=== PATIENT | male | born 1930 | race Caucasian/White ===

== ENCOUNTER 2017-03-17 11:46 | Inpatient (IN) | payer OTHER, MEDICARE ==
--- NOTE | 2017-03-17 11:58 | CPEKG ---
Heart Rate: 108 RR Interval: 556 P-R Interval: 180 QRSD Interval: 100 QT Interval: 340 QTC Interval: 456 P [place]: 44 QRS [place]: -17 T Wave [place]: 122 EKG Severity - ABNORMAL ECG - EKG Impression: SINUS TACHYCARDIA EKG Impression: MULTIPLE VENTRICULAR PREMATURE COMPLEXES EKG Impression: BORDERLINE LEFT AXIS DEVIATION EKG Impression: NONSPECIFIC REPOL ABNORMALITY, DIFFUSE LEADS Electronically Signed By: Vishal Jeong 17-Mar-2017 13:25:22
[2017-03-17] MEDS ORDERED: IPRATROPIUM/ALBUTEROL 3 ML DEYVIAL IH ONE (12:02)
--- NOTE | 2017-03-17 12:10 | EDPHY ---
H & P Time Seen by Provider: 03/17/17 11:49 HPI/ROS: CHIEF COMPLAINT: Cough and shortness of breath HISTORY OF PRESENT ILLNESS: The patient returned from [place] on Thursday. He lives there during the winter. Thursday night he began getting a cough and feeling more short of breath. Presents today with moderate shortness of breath. Worse with exertion. Worse with coughing. Not associated with chest pain. No hemoptysis and chronic leg swelling which is not worse. REVIEW OF SYSTEMS: Eye: no change in vision ENT: no sore throat Cardiac: no chest pain or syncope Pulmonary: HPI Abdomen: no vomiting, diarrhea, abdominal pain Musculoskeletal: no back pain, he does have chronic lower extremity swelling. Skin: no rash Neuro: no headache Constitutional: no fever : no urinary symptoms A comprehensive 10 point review of systems is otherwise negative aside from elements mentioned in the history of present illness. 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 Eyes: No scleral icterus. ENT, Mouth: Normal mucous membranes. Respiratory: Bilateral wheezing and prolonged expiratory phase. Cardiovascular: Regular rate and rhythm. Gastrointestinal: Abdomen is soft and non tender. Neurological: Alert and oriented x3. Normally conversant. Face symmetric, normal movement and sensation in all extremities. Skin: Warm and dry, no rashes. Musculoskeletal: Bilateral 3+ pedal edema but no calf tenderness. Psychiatric: Not agitated. Emergency Department course/MDM: DuoNeb, chest x-ray and EKG, troponin and D-dimer. Noted to be hypoxemic at 89 % and slightly tachycardic greater than 100. 1245: D-dimer elevated, CT angio discussed and consented. 1410: Results and plan discussed with patient and family. Admission for nebulizer treatments, IV steroids, supportive care and oxygen. Hypoxic on arrival, require supplemental oxygen. Does not currently have indication for antibiotics. Bacterial infection not suspected. Likely URI with reactive airway disease. Smoking Status: Never smoked Constitutional: Initial Vital Signs Temperature (C) 37.1 C 03/17/17 11:46 Heart Rate 109 H 03/17/17 11:46 Respiratory Rate 24 H 03/17/17 11:46 Blood Pressure 187/92 H 03/17/17 11:46 O2 Sat (%) 88 L 03/17/17 11:46 O2 Delivery Mode Nasal Cannula O2 (L/minute) 2 Allergies/Adverse Reactions: Sulfa (Sulfonamide Antibiotics) Allergy (Unknown, Verified 09/11/16 18:46) Home Medications: Medication Instructions Recorded Omeprazole 20 mg PO BID 09/12/16 Valsartan/Hydrochlorothiazide 1 each PO DAILY 03/17/17 [Diovan Hct 320-25 mg Tablet] Medical Decision Making - Diagnostics EKG Interpretation: 12-lead EKG interpreted by me; official reading is in trace master. My interpretation is sinus tachycardia, PVC, left axis. Imaging Results: Imaging Impressions Chest X-Ray 03/17/17 12:02 Impression: 1. Findings consistent with COPD/chronic bronchitis. 2. Basilar opacities presumably represent atelectasis. Chest/Thorax CTA 03/17/17 12:42 Impression: 1. Technically limited study with no large central pulmonary emboli identified. 2. Scattered areas of groundglass opacity bilaterally and noncalcified pulmonary nodules not significantly changed from the 2016 study. 3. Basilar atelectasis, left greater than right. 4. Large hiatal hernia with associated esophageal reflux. 5. Numerous enlarged lymph nodes of uncertain clinical significance. Results called and discussed with BLAISE CORTES M.D. on 03/17/2017 at 14:20 CT angio discussed with at 1408 no PE, chronic lung disease. Consult/Admit Bed Type: [facility] 1409 - Data Points Laboratory Results: Laboratory Results 03/17/17 12:04 03/17/17 12:04 03/17/17 03/17/17 03/17/17 12:04 12:04 12:04 WBC 3.14 10^3/uL L 10^3/uL (3.80-9.50) RBC 3.78 10^6/uL L 10^6/uL (4.40-6.38) Hgb 9.7 g/dL L g/dL (13.7-17.5) Hct 30.9 % L % (40.0-51.0) MCV 81.7 fL fL (81.5-99.8) MCH 25.7 pg L pg (27.9-34.1) MCHC 31.4 g/dL L g/dL (32.4-36.7) RDW 15.9 % H % (11.5-15.2) Plt Count 146 10^3/uL L 10^3/uL (150-400) MPV 9.2 fL fL (8.7-11.7) Neut % (Auto) 79.0 % H % (39.3-74.2) Lymph % (Auto) 15.6 % % (15.0-45.0) Ceiba % (Auto) 4.8 % % (4.5-13.0) Eos % (Auto) 0.0 % L % (0.6-7.6) Baso % (Auto) 0.3 % % (0.3-1.7) Nucleat RBC Rel Count 0.6 % H % (0.0-0.2) Absolute Neuts (auto) 2.48 10^3/uL 10^3/uL (1.70-6.50) Absolute Lymphs (auto) 0.49 10^3/uL L 10^3/uL (1.00-3.00) Absolute Monos (auto) 0.15 10^3/uL L 10^3/uL (0.30-0.80) Absolute Eos (auto) 0.00 10^3/uL L 10^3/uL (0.03-0.40) Absolute Basos (auto) 0.01 10^3/uL L 10^3/uL (0.02-0.10) Absolute Nucleated RBC 0.02 10^3/uL H 10^3/uL (0-0.01) Immature Gran % 0.3 % % (0.0-1.1) Seg Neutrophils % 71 % % Band Neutrophils % 9 % % Lymphocytes % 14 % % Monocytes % 5 % % Eosinophils % 1 % % Immature Gran # 0.01 10^3/uL 10^3/uL (0.00-0.10) Absolute Seg Neuts 2.23 10^/uL 10^/uL (1.70-6.50) Absolute Band Neuts 0.28 10^3/uL 10^3/uL (0.00-0.70) Absolute Lymphocytes 0.44 10^3/uL L 10^3/uL (1.00-3.00) Absolute Monocytes 0.16 10^3/uL L 10^3/uL (0.30-0.80) Absolute Eosinophils 0.03 10^3/uL 10^3/uL (0.03-0.40) Atypical Lymphocytes 1+ H Platelet Estimate DECREASED L (ADEQ) Hypochromasia 2+ H PT 13.3 SEC SEC (12.0-15.0) INR 1.02 (0.83-1.16) APTT 29.8 SEC SEC (23.0-38.0) D-Dimer 1.70 ug/mLFEU H ug/mLFEU (0.00-0.50) Sodium 137 mEq/L mEq/L (134-144) Potassium 4.0 mEq/L mEq/L (3.5-5.2) Chloride 104 mEq/L mEq/L (97-110) Carbon Dioxide 23 mEq/l mEq/l (22-31) Anion Gap 10 mEq/L mEq/L (8-16) BUN 15 mg/dL mg/dL (7-23) Creatinine 1.0 mg/dL mg/dL (0.7-1.3) Estimated GFR > 60 Glucose 123 mg/dL H mg/dL (70-100) Calcium 8.5 mg/dL mg/dL (8.5-10.4) Total Bilirubin 0.7 mg/dL mg/dL (0.1-1.4) Troponin I 0.026 ng/mL ng/mL (0-0.034) Medications Given: Discontinued Medications Albuterol (Proventil Neb) 3 ml IH EDNOW ONE Stop: 03/17/17 14:13 Last Admin: 03/17/17 14:20 Dose: 3 ml Albuterol/Ipratropium (Duoneb) 3 ml IH EDNOW ONE Stop: 03/17/17 12:03 Last Admin: 03/17/17 12:23 Dose: 3 ml Methylprednisolone Sodium Succinate (Solu-Medrol) 125 mg IVP EDNOW ONE Stop: 03/17/17 14:13 Last Admin: 03/17/17 14:20 Dose: 125 mg Departure - Departure Disposition: [facility] Inpatient Acute Clinical Impression: Bronchospasm, Hypoxia Condition: Good
[2017-03-17 12:22] LABS: % IMMATURE GRANULYOCYTES 0.3 % (0.0-1.1); ABSOLUTE IMMATURE GRANULOCYTES 0.01 10^3/uL (0.00-0.10); ABSOLUTE NRBC COUNT 0.02 10^3/uL (0-0.01); ADD DIFF? NO; ADD MORPH? NO; ADD SCAN? YES; FRAGMENT RBC FLAG 0 (0-99); HEMATOCRIT 30.9 % (40.0-51.0); HEMOGLOBIN 9.7 g/dL (13.7-17.5); LEFT SHIFT FLG 40 (0-99); LIPEMIA HEMOLYSIS FLAG 80 (0-99); MEAN CELL HEMOGLOBIN 25.7 pg (27.9-34.1); MEAN CELL HEMOGLOBIN CONCENTR. 31.4 g/dL (32.4-36.7); MEAN CELL VOLUME 81.7 fL (81.5-99.8); MEAN PLATELET VOLUME 9.2 fL (8.7-11.7); NRBC-AUTO% 0.6 % (0.0-0.2); PLATELET CLUMPS FLAG 20 (0-99); PLATELET COUNT 146 10^3/uL (150-400); RED BLOOD CELL COUNT 3.78 10^6/uL (4.40-6.38); RED CELL DISTRIBUTION WIDTH 15.9 % (11.5-15.2)
[2017-03-17 12:23] LABS: ATYPICAL LYMPHOCYTE FLAG 110 (0-99)
[2017-03-17 12:36] LABS: ANION GAP 10 mEq/L (8-16); APTT 29.8 SEC (23.0-38.0); BILIRUBIN,TOTAL 0.7 mg/dL (0.1-1.4); CALCIUM 8.5 mg/dL (8.5-10.4); CARBON DIOXIDE 23 mEq/l (22-31); CHLORIDE 104 mEq/L (97-110); GLOMERULAR FILTRATION RATE > 60; GLUCOSE 123 mg/dL (70-100); INR 1.02 (0.83-1.16); PROTIME(PATIENT) 13.3 SEC (12.0-15.0); SODIUM 137 mEq/L (134-144)
[2017-03-17] MEDS ORDERED: IOPAMIDOL (ISOVUE 370) 100 ML BTL IV ONE (12:46)
[2017-03-17 12:49] LABS: TROPONIN I 0.026 ng/mL (0-0.034)
[2017-03-17 12:54] LABS: SCAN POSITIVE
[2017-03-17 12:58] LABS: HYPOCHROMIA 2+; PLATELET ESTIMATE DECREASED (ADEQ)
[2017-03-17] MEDS ORDERED: methylPREDNISolone SOD SUCC 125 MG/2 ML VIAL IVP ONE (14:12)
[2017-03-17] MEDS ORDERED: ALBUTEROL 3 ML DEYVIAL IH ONE (14:12)
[2017-03-17] MEDS ORDERED: ACETAMINOPHEN 325 MG TAB PO PRN (15:05)
[2017-03-17] MEDS ORDERED: ONDANSETRON 4 MG/2 ML VIAL IVP PRN (15:05)
[2017-03-17] MEDS ORDERED: ONDANSETRON DISINTEGRATING 4 MG TAB PO PRN (15:05)
[2017-03-17] MEDS ORDERED: ALBUTEROL 3 ML DEYVIAL IH PRN (15:15)
--- NOTE | 2017-03-17 15:46 | GHP ---
[f rep st] HISTORY AND PHYSICAL DATE OF ADMISSION: 03/17/2017 HISTORY OF PRESENT ILLNESS: The patient is a pleasant 87-year-old gentleman with history of berylli osis who presents to the hospital with increased work of breathing. It sounds like he has recently returned from [place] where he spent some time in the winter. He is currently complaining of increa sed work of breathing, cough that is moderately productive, maybe had some chills, no fever. He did get a flu shot this year. His cough has been productive of occasional white sputum. He has no his tory of pulmonary embolism or coronary artery disease and not had anginal-type pain. He does have l ower extremity edema that is not new. He denies hematemesis or coffee-ground emesis. REVIEW OF SYSTEMS: Complete 10-point review of systems conducted, negative except as noted in the H PI. PAST MEDICAL HISTORY: 1. Berylliosis with chronic interstitial lung disease, not on home oxygen. 2. Esophagitis with a GI bleed in August 2016. 3. Pseudogout. 4. Hypertension. 5. GERD. MEDICATIONS: Diovan, Prilosec, vitamins. Although an updated medication list not available current ly. ALLERGIES: He is allergic to sulfa. SOCIAL HISTORY: No tobacco, minimal alcohol. Worked at [employer] for 30 years. present at bedside. FAMILY HISTORY: Daughter is alive and healthy, present at the bedside. Parents are . PHYSICAL EXAM: VITAL SIGNS: Temp 37.1, blood pressure 187/92, pulse 109, breathing 24 times a alida te, 88% on room air. GENERAL: In no acute distress. HEENT: Sclerae anicteric. Oropharynx clear. Mucous membranes moist. NECK: Supple without lymphadenopathy or JVD. LUNGS: Show rhonchi bilat erally with moderate air movement. There is no wheezing. HEART: S1, S2. Tachycardic. ABDOMEN: Soft, nontender, nondistended. LOWER EXTREMITIES: Show 3+ lower extremity edema bilaterally. SKIN : Without rash. NEUROLOGIC: Grossly nonfocal. He is hard of hearing. LABS: White count 3.14, hemoglobin 9.7, hematocrit 30.9. It was not 7.9 and 24.2 at discharge 6 mo nths ago. Platelets 146. D-dimer is 1.7. Coags normal. Sodium 137, potassium 4.0, chloride 104, bicarb 23, BUN 15, creatinine 1.0. Troponin is 0.026. CTA of the chest shows no pulmonary embolism . The lung parenchyma is limited evaluation secondary to motion artifact although there is evidence of chronic interstitial lung disease. Chest x-ray shows chronic interstitial lung disease without acute infiltrate. Notably the radiologist felt this scan was unchanged. EKG interpreted by me. It shows sinus tach at [address] waves are a little bit saggy in I and L, V5 and V6. There are a couple of PVCs. Compared with the prior EKG also interpreted by me, the downward slopin g ST segments are not new in I and L. I have discussed the case with Dr. Vishal Jeong. ASSESSMENT/PLAN: An 87-year-old gentleman with berylliosis presents with increased work of breathin g and hypoxia. 1. Hypoxemia likely secondary to hyperinflation given chronic obstructive disease as well as some u nderlying interstitial disease. Management as below. 2. Increased work of breathing. I suspect the patient has acute bronchitis and underlying lung dis ease. We will treat with steroids, nebulizers, and doxycycline. I do not suspect left-sided heart failure at this time. 3. Edema. I suspect the patient has a degree of right heart failure given his longstanding lung di sease. He is also not on oxygen at home. We will check echo to evaluate right-sided pressures. 4. Indeterminate troponin. We will cycle. He certainly is at risk for coronary disease given his age and hypertension. 5. History of esophagitis and gastrointestinal bleed. I will place him on a PPI given his steroid therapy. 6. Prophylaxis high risk. Pharmacologic prophylaxis is indicated. Start enoxaparin. 7. Disposition: Inpatient status. I anticipate greater than 48 hours required to turn this patien t around. /[id number]/MODL
--- NOTE | 2017-03-17 16:11 | ECHO ---
[id number] + + [address] : : [place] [address] : : [phone] + Adult Echocardiographic Report + ------+ :Name: KESHAWN SIMENTAL WStudy Date: 03/17/2017 03:25 PM BP: 144/89 mmH g : : Hospital Admission Number: [id number] Locati on: ER: :: 1930 Gender: Male Height: 67 in : :Age: 87 yrs Race: WH Weight: 157 lb : :Reason For Study: eval rt heart : : BSA: 1.8 meter s2 : :History: edema, lung disease : + ------+ MMode/2D Measurements \T\ Calculations IVSd: 1.4 cm RVDd: 3.6 cm FS: 38.1 % Ao root diam: LVPWd: 1.0 cm LVIDd: 3.8 cm EDV(Teich): 63.1 ml 4.0 cm LVIDs: 2.4 cm ESV(Teich): 19.5 ml LA dimension: EF(Teich): 69.1 % 3.7 cm LVOT diam: LVLd ap4: 9.8 cm SV(MOD-sp4): 2.0 cm EDV(MOD-sp4): 121.0 ml LVOT area: 214.0 ml 3.1 cm2 LVLs ap4: 8.2 cm ESV(MOD-sp4): 93.0 ml EF(MOD-sp4): 56.5 % Normal Measurement Values: + + :LVIDd (3.5-5.7cm) IVSd (0.6-1.1cm) LVPWd (0.6-1.1cm) Aortic Root (2.0-3.7cm)Left Atrium (1.5-4.0cm): :LV Vol(d) (76-115ml) LV Vol(s) (29-48ml) Ejec Fraction (50-65%)PV Severiano (0.6- 1.2m/s) TV Severiano (0.4-1.0m/s) : :MV E Severiano (0.8-1.0m/s)MV A Severiano (0.3-1.0m/s)LVOT Severiano (0.7-1.2m/s) Asc Ao Severiano ( 0.9-1.8m/s) : + + Doppler Measurements \T\ Calculations MV E max severiano: Ao V2 max: AI max severiano: LV V1 max: 108.0 cm/sec 269.5 cm/sec 419.0 cm/sec 159.0 cm/sec MV A max severiano: Ao max PG: AI max P.2 mmHgLV V1 max P.0 cm/sec 29.1 mmHg AI dec slope: 10.1 mmHg MV E/A: 0.78 Ao mean P.0 cm/sec2 LV V1 mean PG: MV dec time: 16.5 mmHg AI P1/2t: 253.0 msec5.0 mmHg 0.24 sec Ao V2 mean: LV V1 mean: 193.5 cm/sec 101.0 cm/sec Ao V2 VTI: 44.9 cm LV V1 VTI: 25.6 cm TIFFANY(I,D): 1.8 cm2 TIFFANY(V,D): 1.9 cm2 SV(LVOT): 80.4 ml PA V2 max: TR max severiano: 128.0 cm/sec 275.0 cm/sec PA max PG: TR max P.3 mmHg 6.6 mmHg RAP systole: 5.0 mmHg RVSP(TR): 35.3 mmHg Left Ventricle The left ventricle is normal in size and function. There is mild concentric left ventricular hypertrophy. Ejection Fraction = 60-65%. There is Doppler evidence for diastolic dysfunction. No regional wall motion abnormalities noted. Right Ventricle The right ventricle is normal in size and function. Atria The left atrium is moderate to severely dilated. The Left Atrial Volume is 52 ml/m2. Right atrial size is normal. Mitral Valve The mitral valve leaflets appear thickened, but open well. There is mild to moderate mitral annular calcification. There is no mitral valve stenosis. There is trace to mild mitral regurgitation. Tricuspid Valve The tricuspid valve is normal in structure and function. There is no tricuspid stenosis. There is trace tricuspid regurgitation. Right ventricular systolic pressure is 35mmHg. There is Doppler evidence for mild pulmonary hypertension. Aortic Valve The aortic valve is trileaflet. Mild Aortic Valve Calcification. Mild valvular aortic stenosis. 29/17 max/mean aortic valve pressure gradients. Moderate aortic regurgitation. Pulmonic Valve The pulmonic valve is not well visualized. trace to mild pulmonic valvular regurgitation. Great Vessels The aortic root is normal size. Pericardium/Pleural There is no pericardial effusion. Conclusion A two-dimensional transthoracic echocardiogram with M-mode and Doppler was performed. The left ventricle is normal in size and function. There is mild concentric left ventricular hypertrophy. Ejection Fraction = 60-65%. There is Doppler evidence for diastolic dysfunction. The left atrium is moderate to severely dilated. The Left Atrial Volume is 52 ml/m2. There is trace to mild mitral regurgitation. There is trace tricuspid regurgitation. Right ventricular systolic pressure is 35mmHg. There is Doppler evidence for mild pulmonary hypertension. Mild valvular aortic stenosis. 29/17 max/mean aortic valve pressure gradients. Moderate aortic regurgitation. trace to mild pulmonic valvular regurgitation. Final Reading Physician: Junior Clark signed on 03/17/2017 04:09 PM Ordering Physician: Burton Fields Performed By: Mariella Rashid
[2017-03-17] MEDS: PANTOPRAZOLE SODIUM 40 MG TAB PO SCH (16:27)
[2017-03-17] MEDS: IPRATROPIUM/ALBUTEROL 3 ML DEYVIAL IH SCH ×2 (16:58→23:07)
[2017-03-17] MEDS: methylPREDNISolone SOD SUCC 125 MG/2 ML VIAL IVP SCH (18:28)
[2017-03-17 20:03] LABS: TROPONIN I 0.077 ng/mL (0-0.034)
[2017-03-17] MEDS ORDERED: NON-FORMULARY NEW DRUG (Omeprazole [Omeprazole] 20 MG) PO SCH (21:00)
[2017-03-17] MEDS: DOXYCYCLINE HYCLATE 100 MG CAP/TAB PO SCH (21:58)
[2017-03-18] MEDS: methylPREDNISolone SOD SUCC 125 MG/2 ML VIAL IVP SCH ×2 (00:02→05:15)
[2017-03-18] MEDS: IPRATROPIUM/ALBUTEROL 3 ML DEYVIAL IH SCH ×4 (05:18→23:00)
[2017-03-18 06:15] LABS: ADD MORPH? NO; ADD SCAN? YES; ATYPICAL LYMPHOCYTE FLAG 0 (0-99); FRAGMENT RBC FLAG 0 (0-99); HEMATOCRIT 26.9 % (40.0-51.0); HEMOGLOBIN 8.5 g/dL (13.7-17.5); LIPEMIA HEMOLYSIS FLAG 80 (0-99); MEAN CELL HEMOGLOBIN 25.8 pg (27.9-34.1); MEAN CELL HEMOGLOBIN CONCENTR. 31.6 g/dL (32.4-36.7); MEAN CELL VOLUME 81.5 fL (81.5-99.8); MEAN PLATELET VOLUME 9.7 fL (8.7-11.7); PLATELET CLUMPS FLAG 0 (0-99); PLATELET COUNT 115 10^3/uL (150-400); RED CELL DISTRIBUTION WIDTH 15.9 % (11.5-15.2)
[2017-03-18 07:00] LABS: LEFT SHIFT FLG 300 (0-99)
[2017-03-18 07:22] LABS: ANION GAP 9 mEq/L (8-16); CALCIUM 7.8 mg/dL (8.5-10.4); CARBON DIOXIDE 22 mEq/l (22-31); CHLORIDE 106 mEq/L (97-110); CREATININE 1.1 mg/dL (0.7-1.3); GLOMERULAR FILTRATION RATE > 60; GLUCOSE 170 mg/dL (70-100); POTASSIUM 3.9 mEq/L (3.5-5.2); SODIUM 137 mEq/L (134-144)
[2017-03-18 07:28] LABS: ADD DIFF? YES; SCAN POSITIVE
[2017-03-18 07:32] LABS: TROPONIN I 0.075 ng/mL (0-0.034)
[2017-03-18 07:33] LABS: TOXIC VACUOLIZATION PRESENT
[2017-03-18 07:34] LABS: PLATELET ESTIMATE DECREASED (ADEQ)
[2017-03-18] MEDS: VALSARTAN 160 MG TAB PO SCH (08:39)
[2017-03-18] MEDS: ENOXAPARIN 40 MG/0.4 ML SYR SC SCH (08:39)
[2017-03-18] MEDS: DOXYCYCLINE HYCLATE 100 MG CAP/TAB PO SCH ×2 (08:39→22:09)
[2017-03-18] MEDS: HYDROCHLOROTHIAZIDE 25 MG TAB PO SCH (08:39)
[2017-03-18] MEDS: PANTOPRAZOLE SODIUM 40 MG TAB PO SCH (08:39)
[2017-03-18] MEDS ORDERED: FUROSEMIDE 40 MG/4 ML VIAL IVP ONE (11:43)
--- NOTE | 2017-03-18 11:47 | HOSPPROG ---
Hospitalist Progress Note Assessment/Plan: 87 yo M w berylliosis here w URI, hypoxemia hypoxemia: uri in setting of known ILD continue 02 steroids, nebs, abx ILD flare: steroids, nebs, abx edema: intact RV function w modestly elevated PA pressures lasix X 1 I suspect he is often hypoxemic at home proph: lmwh elevated trop: no wma, no chest pain modest elevation ekg w lat TWI, not new (interp by me) dispo: inpt Subjective: feels better. no events telemetry (interp by me) Objective: Vital Signs Temp Pulse Resp BP Pulse Ox 36.6 C 105 H 20 106/47 L 95 03/18/17 11:37 03/18/17 11:37 03/18/17 11:37 03/18/17 11:37 03/18/17 11:37 Laboratory Results 03/18/17 05:29 03/18/17 05:29 03/17/17 03/18/17 03/19/17 05:59 05:59 05:59 Output Total 180 Balance -180 PT 13.3 SEC (12.0-15.0) 03/17/17 12:04 INR 1.02 (0.83-1.16) 03/17/17 12:04 - Physical Exam Constitutional: no apparent distress, appears nourished Eyes: PERRL, anicteric sclera Ears, Nose, Mouth, Throat: moist mucous membranes, hearing normal Cardiovascular: regular rate and rhythym, no murmur, rub, or gallop, edema Respiratory: no respiratory distress, other (improved air movement, less rhonchi ) Gastrointestinal: normoactive bowel sounds, soft, non-tender abdomen Genitourinary: no bladder fullness, No lambert in urethra Skin: warm, normal color Musculoskeletal: full muscle strength, no muscle tenderness ICD10 Worksheet Patient Problems: Problems Problem Status Onset Bronchospasm Acute Hypoxia Acute Anemia Acute Elevated troponin Acute GI bleed Acute
[2017-03-18] MEDS: predniSONE 20 MG TAB PO SCH (13:01)
[2017-03-19] MEDS: IPRATROPIUM/ALBUTEROL 3 ML DEYVIAL IH SCH ×2 (05:31→11:20)
[2017-03-19] MEDS: HYDROCHLOROTHIAZIDE 25 MG TAB PO SCH (08:24)
[2017-03-19] MEDS: predniSONE 20 MG TAB PO SCH (08:24)
[2017-03-19] MEDS: DOXYCYCLINE HYCLATE 100 MG CAP/TAB PO SCH (08:24)
[2017-03-19] MEDS: VALSARTAN 160 MG TAB PO SCH (08:24)
[2017-03-19] MEDS: ENOXAPARIN 40 MG/0.4 ML SYR SC SCH (08:25)
[2017-03-19] MEDS: PANTOPRAZOLE SODIUM 40 MG TAB PO SCH (08:30)
[2017-03-19 11:31] LABS: HEMOGLOBIN 9.4 g/dL (13.7-17.5)
[2017-03-19 11:58] VITALS: RESP 14; TEMP 97.3
--- NOTE | 2017-03-19 15:00 | HOSPPROG ---
Hospitalist Progress Note Assessment/Plan: 87 yo M w berylliosis here w URI, hypoxemia hypoxemia: uri in setting of known ILD continue 02 steroids, nebs, abx will need home 02 will dc w 5 days pred, 5 days doxy, home 02 and albuterol rescue inhaler ILD flare: steroids, nebs, abx edema: intact RV function w modestly elevated PA pressures lasix X 1 I suspect he is often hypoxemic at home proph: lmwh elevated trop: no wma, no chest pain modest elevation ekg w lat TWI, not new (interp by me) dispo: inpt home today w 02 > 30 minutes Subjective: anxious for dc Objective: Vital Signs Temp Pulse Resp BP Pulse Ox 36.3 C 100 14 110/58 L 95 03/19/17 11:57 03/19/17 11:57 03/19/17 11:57 03/19/17 11:57 03/19/17 11:57 Laboratory Results 03/19/17 11:20 03/18/17 05:29 03/18/17 03/19/17 03/20/17 05:59 05:59 05:59 Intake Total 500 Output Total 1340 Balance -840 PT 13.3 SEC (12.0-15.0) 03/17/17 12:04 INR 1.02 (0.83-1.16) 03/17/17 12:04 - Physical Exam Constitutional: no apparent distress, appears nourished Eyes: PERRL, anicteric sclera Ears, Nose, Mouth, Throat: moist mucous membranes, hearing normal Cardiovascular: regular rate and rhythym, no murmur, rub, or gallop Respiratory: other (good air movement, no wheeze) Gastrointestinal: normoactive bowel sounds, soft, non-tender abdomen Genitourinary: No lambert in urethra Skin: warm, normal color, mottled Musculoskeletal: full muscle strength, no muscle tenderness Neurologic: AAOx3, sensation intact bilaterally Psychiatric: interacting appropriately, not anxious Lymph, Heme, Immunologic: no cervical LAD ICD10 Worksheet Patient Problems: Problems Problem Status Onset Bronchospasm Acute Hypoxia Acute Anemia Acute Elevated troponin Acute GI bleed Acute
--- NOTE | 2017-03-19 15:06 | PDIAF ---
- Diagnosis Diagnosis: upper respiratory infection w hypoxia Code Status: Full Code - Medication Management Discharge Medications: Medications to Continue on Transfer Omeprazole 20 mg PO BID 09/12/16 [Last Taken 09/11/16] Valsartan/Hydrochlorothiazide [Diovan Hct 320-25 mg Tablet] 1 each PO DAILY 01/02 [Last Taken Unknown] Albuterol Hfa Anes Only [Proair Hfa Icu (*)] 1 mdi IH Q4 PRN #1 mdi 03/19/17 [ Last Taken Unknown] Doxycycline Hyclate [Vibramycin 100 MG (*)] 100 mg PO BID #8 capsule 03/19/17 [ Last Taken Unknown] predniSONE 60 mg PO DAILY #9 tablet 03/19/17 [Last Taken Unknown] Discharge Medications: Refer to the Discharge Home Medication list for PRN reason. - Orders Services needed: Home Care, Registered Nurse, Physical Therapy, Occupational Therapy Home Care Face to Face: I certify that this patient was under my care and that I had the required [id number] encounter meeting the encounter requirements on the discharge day. My findings support the fact that the patient is homebound as defined in CMS Chapter 7 Medicare Benefits Manual 30.1.1, The condition of the patient is such that there exists a normal inability to leave home and consequently, leaving home would require a considerable and taxing effort. - Follow Up Care Current Providers and Referrals: Jerad Matos MD [Primary Care Provider] - As per Instructions
--- NOTE | 2017-03-19 15:26 | GDS ---
[f rep st] DISCHARGE SUMMARY DISCHARGE DIAGNOSES: 1. 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 2. Upper respiratory infection. 3. History of esophagitis, modest. 4. Indeterminate troponin with normal echocardiogram, without wall motion abnormalities. Please see admission history and physical by Dr. Burton Fields. The patient presented on the after noon of March 17, 2017 with increased work of breathing. He had influenza negative, CTA negative for i nfiltrate or pulmonary embolism. He was started on doxycycline and steroids, as well as nebulizers. He remained somewhat hypoxic while here. He has a history of going home with oxygen following upp er respiratory infection surgeries. On the day of discharge patient was cleared by PT and OT for safe discharge home. He is very anxiou s for discharge. Discharged home to complete a 6 day course of steroids and a 7 day course of antib iotics, and an albuterol inhaler. /[id number]/MODL
[2017-03-19 16:56] VITALS: BP 113/58; PULSE 96; O2SAT 92
== END 2017-03-19 16:59 | disposition home or self-care (01) | DRG 198 ==
LOC: OBSVTOIN 15:07 → F3E 15:50
PROVIDERS: ADMIT Internal Medicine; ATTEND Internal Medicine
DX: J63.2 Berylliosis (principal); J06.9 Acute upper respiratory infection, unspecified; I10 Essential (primary) hypertension
CPT/HCPCS: 96374; 97116-GP; 97161-GP; 97165-GO; 97530-GO; G8978-GP-CL; G8979-GP-CI; G8987-GO-CI; G8988-GO-CI; J1650; Q9967